=== PATIENT | female | born 2000 | race Caucasian/White ===

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

== ENCOUNTER 2020-04-07 14:06 | Outpatient (CLI) | payer BC ==
--- NOTE | 2020-04-07 15:33 | RAD ---
RIGHT ANKLE 3 VIEWS: HISTORY: Injury, right ankle pain FINDINGS: There is a well-corticated bony density inferior to the lateral malleolus likely from remote trauma. The ankle mortise is maintained. No acute fracture or dislocation is identified.
== END 2020-04-07 14:07 | disposition home or self-care (01) ==
LOC: SCSRAD 14:06
PROVIDERS: ATTEND Family Medicine
DX: S99.911A Unspecified injury of right ankle, initial encounter (principal); M25.571 Pain in right ankle and joints of right foot